=== PATIENT | male | born 1935 | race Caucasian/White ===

== ENCOUNTER 2017-12-31 13:54 | Inpatient (IN) | payer OTHER, BC ==
[~2017-12-31] VITALS: Ht 167.6 cm; Wt 70.8 kg
[~2017-12-31 13:54] MED LIST: ASPIRIN325 MG PO; AUGMENTIN875 MG PO; CARVEDILOL3.125 MG PO; FINASTERIDE5 MG PO; LISINOPRIL5 MG PO; SIMVASTATIN40 MG PO; TERAZOSIN HCL2 MG PO; VALIUM5 MG PO; ZITHROMAX250 MG PO
[2017-12-31 14:37] LABS: BASOPHIL (%) 0.2 % (0-1); EOSINOPHIL (%) 0.4 % (0-5); HEMATOCRIT 33.7 % (38.0-50.0); HEMOGLOBIN 11.6 G/DL (12.5-16.6); IMMATURE GRANULOCYTE (%) 0.2 % (0.0-0.7); LYMPHOCYTE COUNT 0.6 K/uL (1.0-2.8); MCH 31.4 PG (29.0-34.0); MCHC 34.4 G/DL (30.0-36.0); MCV 91.3 FL (86-99); MONOCYTE (%) 10.3 % (3-12); MONOCYTE COUNT 0.6 K/uL (0-0.8); NEUTROPHIL (%) 77.9 % (45-76); NEUTROPHIL COUNT 4.5 K/uL (1.8-6.4); PLATELET COUNT 161 K/uL (156-360); RBC DIS.WIDTH-CV 12.6 % (11.8-14.6); RBC DIS.WIDTH-SD 42.2 % (39-53); RED BLOOD COUNT 3.69 M/uL (4.00-5.50); WHITE BLOOD COUNT 5.7 K/uL (4.1-10.2)
[2017-12-31 14:43] LABS: ALBUMIN 3.8 g/dL (3.2-4.8); CHLORIDE 104 mEq/L (99-109); POTASSIUM 4.4 mEq/L (3.7-5.4); SODIUM 135 mEq/L (136-147)
[2017-12-31 14:44] LABS: MAGNESIUM 1.9 mg/dL (1.3-2.7)
[2017-12-31 14:45] LABS: GLUCOSE 116 mg/dL (70-99); PTT 29.6 SEC (25-37); TOTAL PROTEIN 6.7 g/dL (6.4-8.3)
[2017-12-31 14:47] LABS: TOTAL BILIRUBIN 0.5 mg/dL (0.0-1.0)
[2017-12-31 14:49] LABS: ALKALINE PHOSPHATASE 37 IU/L (3-129); CREATININE 1.1 mg/dL (0.6-1.3); GFR ESTIMATE (CALCULATED) > 59 mL/min/ (58.99-99999)
[2017-12-31 14:50] LABS: UREA NITROGEN (BUN) 25 mg/dL (9-23)
[2017-12-31 14:51] LABS: AST (GOT) 29 IU/L (2-34)
[2017-12-31 14:52] LABS: CREATINE KINASE 330 IU/L (1-294); TOTAL CK 330 IU/L (1-294)
[2017-12-31 14:52] LABS: ALT (GPT) 15 IU/L (3-49)
[2017-12-31 14:55] LABS: TROP-I INTERPRETATION NEGATIVE; TROPONIN-I 0.01 ng/mL (0.0-0.30)
[2017-12-31 14:58] LABS: CK-MB 1.1 ng/mL (0.0-4.9); CKMB RELATIVE INDEX 0.3 (0.0-3.9)
[2017-12-31 17:14] LABS: APPEARANCE SL.HAZY ((CLEAR)); BILIRUBIN NEGATIVE; BLOOD NEGATIVE; COLOR YELLOW ((YELLOW)); GLUCOSE (STRIP) NEGATIVE; KETONES NEGATIVE; LEUKOCYTES NEGATIVE; NITRITE NEGATIVE; PROTEIN (STRIP) 30; SPECIFIC GRAVITY 1.023 (1.000-1.030); UROBILINOGEN 0.2 MG/DL (0.2-1.0)
[2017-12-31 17:19] LABS: BACTERIA NONE SEEN /HPF; EPITHELIAL CELLS NONE SEEN /HPF; MUCUS 4+ /LPF; RED BLOOD CELLS NONE SEEN /HPF (0-5); UCUL ADDED? NO; WHITE BLOOD CELLS 0-5 /HPF (0-5)
[2017-12-31] MEDS ORDERED: MELOXICAM7.5 MG PO (19:08)
[2017-12-31] MEDS ORDERED: LISINOPRIL10 MG PO (19:09)
[2017-12-31] MEDS ORDERED: CYANOCOBALAM1000 MCG PO (19:15)
[2017-12-31] MEDS ORDERED: IBUPROFEN400 MG PO (19:17)
[2017-12-31 19:57] LABS: RED CELL COUNT ND /MM^3 (0-1); WHITE CELL COUNT ND /MM^3 (0-5)
[2017-12-31 19:58] LABS: CSF TUBE NUMBER TUBE #3
[2017-12-31 20:38] LABS: CSF EOSINOPHILS 0 % (0-25); MONONUCLEAR WBC'S 20 % (50-90); POLYNUCLEAR WBC'S 80 % (0-3)
[2017-12-31 21:57] LABS: GLUCOSE, CSF ND mg/dL (40-80)
[2017-12-31 22:03] LABS: CSF PROTEIN ND mg/dL (15-45)
[2018-01-01 00:10] VITALS: BP 135/63
[2018-01-01 06:29] LABS: HEMATOCRIT 29.6 % (38.0-50.0); HEMOGLOBIN 9.8 G/DL (12.5-16.6); MCHC 33.1 G/DL (30.0-36.0); MCV 93.7 FL (86-99); PLATELET COUNT 139 K/uL (156-360); RBC DIS.WIDTH-CV 12.8 % (11.8-14.6); RBC DIS.WIDTH-SD 44.4 % (39-53); RED BLOOD COUNT 3.16 M/uL (4.00-5.50); WHITE BLOOD COUNT 9.5 K/uL (4.1-10.2)
[2018-01-01 06:51] LABS: CHLORIDE 109 MEQ/L (99-109); GFR ESTIMATE (CALCULATED) > 59 mL/min/ (58.99-99999); GLUCOSE 119 mg/dL (70-99); POTASSIUM 4.1 MEQ/L (3.7-5.4); SODIUM 138 MEQ/L (136-147); UREA NITROGEN (BUN) 20 mg/dL (9-23)
[2018-01-01 07:24] VITALS: BP 137/64
[2018-01-01 15:07] VITALS: BP 138/77
[2018-01-01 23:57] VITALS: BP 117/60
[2018-01-02 06:47] LABS: BASOPHIL (%) 0.1 % (0-1); EOSINOPHIL (%) 0 % (0-5); HEMATOCRIT 31.2 % (38.0-50.0); HEMOGLOBIN 10.6 G/DL (12.5-16.6); IMMATURE GRANULOCYTE (%) 0.8 % (0.0-0.7); LYMPHOCYTE (%) 7.5 % (15-42); MCH 31.5 PG (29.0-34.0); MCV 92.6 FL (86-99); MONOCYTE (%) 4.8 % (3-12); MONOCYTE COUNT 0.7 K/uL (0-0.8); NEUTROPHIL (%) 86.8 % (45-76); NEUTROPHIL COUNT 11.9 K/uL (1.8-6.4); PLATELET COUNT 164 K/uL (156-360); RBC DIS.WIDTH-SD 43.9 % (39-53); RED BLOOD COUNT 3.37 M/uL (4.00-5.50); WHITE BLOOD COUNT 13.7 K/uL (4.1-10.2)
[2018-01-02 07:11] LABS: CHLORIDE 106 MEQ/L (99-109); GFR ESTIMATE (CALCULATED) > 59 mL/min/ (58.99-99999); GLUCOSE 124 mg/dL (70-99); MAGNESIUM 2.5 mg/dl (1.3-2.7); POTASSIUM 4.1 MEQ/L (3.7-5.4); SODIUM 135 MEQ/L (136-147); UREA NITROGEN (BUN) 26 mg/dL (9-23)
[2018-01-02 07:57] VITALS: BP 180/60
[2018-01-02 15:50] VITALS: BP 159/67
[2018-01-03 00:30] VITALS: BP 147/67
[2018-01-03 08:01] VITALS: BP 163/73
[2018-01-03 08:07] LABS: HEMATOCRIT 32.8 % (38.0-50.0); MCHC 33.5 G/DL (30.0-36.0); MCV 92.4 FL (86-99); PLATELET COUNT 190 K/uL (156-360); RBC DIS.WIDTH-CV 13.1 % (11.8-14.6); RBC DIS.WIDTH-SD 44.8 % (39-53); RED BLOOD COUNT 3.55 M/uL (4.00-5.50)
[2018-01-03 08:40] LABS: CHLORIDE 108 MEQ/L (99-109); GFR ESTIMATE (CALCULATED) > 59 mL/min/ (58.99-99999); GLUCOSE 102 mg/dL (70-99); POTASSIUM 4.6 MEQ/L (3.7-5.4); SODIUM 138 MEQ/L (136-147); UREA NITROGEN (BUN) 27 mg/dL (9-23)
[2018-01-03] MEDS ORDERED: VENTOLIN HFA18 GM IH (10:51)
[2018-01-03] MEDS ORDERED: PREDNISONE20 MG PO (10:51)
[2018-01-03] MEDS ORDERED: AMOX TR-K CLV1 EAC4 PO (10:51)
== END 2018-01-03 12:32 | disposition home health service (06) | DRG 195 ==
LOC: EME 13:54 → 5SOUTH 21:43 → EDOF 21:43 → ENRESERV 21:49 → 5SOUTH 23:13
PROVIDERS: Emergency Medicine; Hospitalist; Physician Assistant; Physician Assistant Medical
PROC: 009U3ZX Drainage of Spinal Canal, Percutaneous Approach, Diagnostic (ICD-10-PCS; principal; 2017-12-31)
DX: J18.9 Pneumonia, unspecified organism (principal); J45.909 Unspecified asthma, uncomplicated; E86.0 Dehydration; R73.9 Hyperglycemia, unspecified; N40.0 Benign prostatic hyperplasia without lower urinary tract symptoms; I10 Essential (primary) hypertension; F03.90 Unspecified dementia, unspecified severity, without behavioral disturbance, psychotic disturbance, mood disturbance, and anxiety; H91.90 Unspecified hearing loss, unspecified ear; I25.10 Atherosclerotic heart disease of native coronary artery without angina pectoris; Z95.1 Presence of aortocoronary bypass graft; Z87.891 Personal history of nicotine dependence; Z79.899 Other long term (current) drug therapy; Z79.82 Long term (current) use of aspirin
CPT/HCPCS: 71045; 71250; 80048; 80053; 81003; 82550; 82553; 82565; 82945; 82948; 83605; 83735; 83880; 84157; 84484; 85025; 85027; 85610; 85730; 87040; 87070; 87205; 87502; 89051; 93005; 94640; 94640 76; 99202; 99281; 99285; J0133; J0696; J1644; J2543; J2920; J3370; J3475; J7030; J7050; J7512; J7644; S0028

== ENCOUNTER 2018-01-13 01:00 | Emergency (ER) | payer OTHER, BC ==
[~2018-01-13] VITALS: Ht 165.1 cm; Wt 65.4 kg
[~2018-01-13 01:00] MED LIST changes: +AMOX TR-K CLV1 EAC4 PO; +CYANOCOBALAM1000 MCG PO; +IBUPROFEN400 MG PO; +LISINOPRIL10 MG PO; +MELOXICAM7.5 MG PO; +PREDNISONE20 MG PO; +VENTOLIN HFA18 GM IH
[2018-01-13 01:38] LABS: HEMOGLOBIN 12.1 G/DL (12.5-16.6); MCH 31.3 PG (29.0-34.0); MCHC 33.6 G/DL (30.0-36.0); RBC DIS.WIDTH-CV 13.2 % (11.8-14.6); RBC DIS.WIDTH-SD 44.2 % (39-53); RED BLOOD COUNT 3.87 M/uL (4.00-5.50)
[2018-01-13 01:47] LABS: PLATELET COUNT 259 K/uL (156-360)
[2018-01-13 02:01] LABS: TROP-I INTERPRETATION NEGATIVE; TROPONIN-I 0.01 ng/mL (0.0-0.30)
[2018-01-13 02:10] LABS: CHLORIDE 103 MEQ/L (99-109); CREATININE 0.9 MG/DL (0.6-1.3); GFR ESTIMATE (CALCULATED) > 59 mL/min/ (58.99-99999); GLUCOSE 101 mg/dL (70-99); POTASSIUM 4.4 MEQ/L (3.7-5.4); SODIUM 135 MEQ/L (136-147); UREA NITROGEN (BUN) 14 mg/dL (9-23)
[2018-01-13 02:59] LABS: PTT 27.6 SEC (25-37)
[2018-01-13] MEDS ORDERED: TESSALON200 MG PO (03:50)
[2018-01-13 04:01] VITALS: BP 136/66
== END 2018-01-13 04:02 | disposition home or self-care (01) ==
LOC: EME 01:00
DX: J98.8 Other specified respiratory disorders (principal); J40 Bronchitis, not specified as acute or chronic; Z87.01 Personal history of pneumonia (recurrent); D64.9 Anemia, unspecified; I10 Essential (primary) hypertension; Z95.1 Presence of aortocoronary bypass graft; Z95.5 Presence of coronary angioplasty implant and graft; Z79.82 Long term (current) use of aspirin; Z87.891 Personal history of nicotine dependence
CPT/HCPCS: 71046; 80048; 83880; 84484; 85027; 85610; 85730; 93005; 94640; 99281; 99285

== ENCOUNTER 2018-01-26 23:43 | Emergency (ER) | payer OTHER, BC ==
[~2018-01-26] VITALS: Ht 167.6 cm; Wt 65.8 kg
[~2018-01-26 23:43] MED LIST changes: +TESSALON200 MG PO
[2018-01-27 00:47] LABS: BASOPHIL (%) 0.3 % (0-1); EOSINOPHIL (%) 3.7 % (0-5); EOSINOPHIL COUNT 0.1 K/uL (0-0.3); HEMATOCRIT 32.9 % (38.0-50.0); HEMOGLOBIN 11.1 G/DL (12.5-16.6); IMMATURE GRANULOCYTE (%) 0.5 % (0.0-0.7); LYMPHOCYTE (%) 49.2 % (15-42); LYMPHOCYTE COUNT 1.9 K/uL (1.0-2.8); MCH 31.2 PG (29.0-34.0); MCHC 33.7 G/DL (30.0-36.0); MCV 92.4 FL (86-99); MONOCYTE (%) 19.5 % (3-12); MONOCYTE COUNT 0.7 K/uL (0-0.8); NEUTROPHIL (%) 26.8 % (45-76); PLATELET COUNT 214 K/uL (156-360); RBC DIS.WIDTH-CV 13.5 % (11.8-14.6); RED BLOOD COUNT 3.56 M/uL (4.00-5.50); WHITE BLOOD COUNT 3.8 K/uL (4.1-10.2)
[2018-01-27 00:56] LABS: ALBUMIN 3.5 g/dL (3.2-4.8); CHLORIDE 109 mEq/L (99-109); MAGNESIUM 2.1 mg/dL (1.3-2.7); POTASSIUM 4.5 mEq/L (3.7-5.4); SODIUM 139 mEq/L (136-147)
[2018-01-27 00:58] LABS: GLUCOSE 98 mg/dL (70-99); TOTAL PROTEIN 6.2 g/dL (6.4-8.3)
[2018-01-27 01:00] LABS: TOTAL BILIRUBIN 0.3 mg/dL (0.0-1.0)
[2018-01-27 01:02] LABS: ALKALINE PHOSPHATASE 53 IU/L (3-129); GFR ESTIMATE (CALCULATED) > 59 mL/min/ (58.99-99999)
[2018-01-27 01:03] LABS: UREA NITROGEN (BUN) 18 mg/dL (9-23)
[2018-01-27 01:04] LABS: AST (GOT) 22 IU/L (2-34)
[2018-01-27 01:05] LABS: ALT (GPT) 20 IU/L (3-49)
[2018-01-27 01:08] LABS: TROP-I INTERPRETATION NEGATIVE; TROPONIN-I < 0.01 ng/mL (0.0-0.30)
[2018-01-27 01:21] VITALS: BP 147/75
== END 2018-01-27 01:22 | disposition home or self-care (01) ==
LOC: EME 23:43
PROVIDERS: Emergency Medicine
DX: R09.81 Nasal congestion (principal); I44.0 Atrioventricular block, first degree; R00.1 Bradycardia, unspecified; I10 Essential (primary) hypertension; J44.9 Chronic obstructive pulmonary disease, unspecified; Z87.891 Personal history of nicotine dependence; Z79.82 Long term (current) use of aspirin; Z95.1 Presence of aortocoronary bypass graft; Z95.5 Presence of coronary angioplasty implant and graft
CPT/HCPCS: 71046; 80053; 81003; 83605; 83735; 84484; 85025; 87040; 87502; 93005; 99281; 99284